=== PATIENT | female | born 1960 | race Caucasian/White ===

== ENCOUNTER 2021-04-10 17:35 | Emergency (ER) | payer BC ==
[2021-04-10] MEDS: Diphtheria,Pertussis(Acell),Tetanus Vaccine 0.5 ML Syringe IM ONE (17:55)
[2021-04-10] MEDS: Lidocaine 2% with EPINEPHrine 1:200,000 10 ML SDV INJECT ONE (18:55)
[2021-04-10] MEDS: ceFAZolin 1 GM Vial IM ONE (18:56)
[2021-04-10] MEDS: Acetaminophen/HYDROcodone 325-10 MG Tab PO ONE (19:00)
== END 2021-04-10 19:05 | disposition home or self-care (01) ==
LOC: KA.ED 17:35
DX: S61.412A Laceration without foreign body of left hand, initial encounter (principal); Z79.82 Long term (current) use of aspirin; Z79.899 Other long term (current) drug therapy; Z91.040 Latex allergy status; Z23 Encounter for immunization; W25.XXXA Contact with sharp glass, initial encounter; Y92.009 Unspecified place in unspecified non-institutional (private) residence as the place of occurrence of the external cause
CPT/HCPCS: 12004; 73120; 90471; 90715; 96372; 99283; A9270; J0690